=== PATIENT | female | born 1935 | race American Indian/Alaskan Native ===

== ENCOUNTER 2017-05-05 08:55 | Emergency (ER) | payer MEDICARE, OTHER ==
[2017-05-05 09:04] VITALS: BMI 29.0
[2017-05-05] MEDS ORDERED: Oxycodone/Acetaminophen 5/325 mg Tab PO STA (09:21)
--- NOTE | 2017-05-05 09:27 | ED PDOC ---
Arrival/HPI - General Chief Complaint: Lower Extremity Problem/Injury Time Seen by Provider: 05/05/17 09:10 Historian: Patient, Family - History of Present Illness Narrative History of Present Illness (Text): 05/05/17 09:24 82 y/o female, hearing impaired and communicated by the daughter with hand translation (pt. preferred), pmh including hyperlipidemia/htn (on beta block, HR 45 but asymptomatic, stated this is her baseline), nkda, c/o bilateral sole pain x 5 days with no fall or trauma. Aching and sharp pain, more on the rt. heel sole region radiating to the calf region, no fever or chills, no coughing or night sweat, no rash, no chest pain or shortness of breath, no lower back pain, no palpitation, limited relief with the tylenol and motrin at home, no other medical or psychological complaints. Past Medical History - Provider Review Nursing Documentation Reviewed: Yes - Reproductive Menopause: Yes - Cardiac Hx Cardiac Disorders: Yes Hx Hypertension: Yes - Pulmonary Hx Respiratory Disorders: No - Neurological Hx Neurological Disorder: No - HEENT Hx HEENT Disorder: Yes Other/Comment: PT DEAF AND MUTE - Renal Hx Renal Disorder: No - Endocrine/Metabolic Hx Endocrine Disorders: No - Hematological/Oncological Hx Blood Disorders: No - Integumentary Hx Dermatological Disorder: No - Musculoskeletal/Rheumatological Hx Musculoskeletal Disorders: Yes Hx Gout: Yes - Gastrointestinal Hx Gastrointestinal Disorders: No - Genitourinary/Gynecological Hx Genitourinary Disorders: No - Psychiatric Hx Psychophysiologic Disorder: No Hx Substance Use: No - Surgical History Hx Appendectomy: Yes Other/Comment: HYSTERECTOMY, HEMORROIDECTOMY - Anesthesia Hx Anesthesia: Yes Hx Anesthesia Reactions: No Family/Social History - Physician Review Nursing Documentation Reviewed: Yes Family/Social History: Unknown Family HX Smoking Status: Never Smoked Hx Alcohol Use: No Hx Substance Use: No Allergies/Home Meds Allergies/Adverse Reactions: Allergies No Known Allergies Allergy (Verified 11/05/14 09:12) Home Medications: Home Meds Medication Instructions Recorded Confirmed Amlodipine Besylate 10 mg PO DAILY 11/05/14 05/05/17 Lisinopril/Hydrochlorothiazide 1 tab PO DAILY 11/05/14 05/05/17 [Lisinopril-Hydrochlorothiazide 25 mg-20 mg] Metoprolol Succinate 100 mg PO DAILY 11/05/14 05/05/17 Simvastatin 40 mg PO DAILY 11/05/14 05/05/17 Review of Systems - Review of Systems Constitutional: absent: Fatigue, Fevers Eyes: absent: Vision Changes ENT: absent: Hearing Changes Respiratory: absent: SOB, Cough Cardiovascular: absent: Chest Pain Gastrointestinal: absent: Abdominal Pain, Nausea, Vomiting Musculoskeletal: absent: Arthralgias, Back Pain Skin: absent: Rash, Pruritis Neurological: absent: Headache, Dizziness, Gait Changes Physical Exam Vital Signs Temp Pulse Resp BP Pulse Ox 05/05/17 11:24 47 L 18 128/58 L 95 05/05/17 09:36 98.4 F 45 L 16 140/57 L 99 - Systems Exam Head: Present: Atraumatic, Normocephalic Pupils: Present: PERRL Conjunctiva: Present: Normal Mouth: Present: Moist Mucous Membranes Neck: Present: Normal Range of Motion Respiratory/Chest: Present: Clear to Auscultation, Good Air Exchange. No: Respiratory Distress, Accessory Muscle Use Cardiovascular: Present: Regular Rate and Rhythm, Normal S1, S2, Other (no pedal edema). No: Murmurs Abdomen: Present: Normal Bowel Sounds. No: Tenderness, Distention, Peritoneal Signs Back: Present: Normal Inspection. No: CVA Tenderness, Midline Tenderness, Paraspinal Tenderness, Pain with Leg Raise Upper Extremity: Present: Normal Inspection. No: Cyanosis, Edema Lower Extremity: Present: Normal Inspection, Neurovascularly Intact, Other ( Bilateral lower extremities: +ttp on the bilateral sole region and more on the rt. calcaneal region, negative bjorn and muhammad signs, no erythematous, FROM without limitation, sensation intact, motor 5/5, +DPPT pulses bilaterally, no ulcers. ). No: Edema, Erythema, Deformity, Temperature Abnormalties Neurological: Present: GCS=15, Speech Normal, Motor Func Grossly Intact, Memory Normal Skin: Present: Warm, Dry, Normal Color. No: Rashes Psychiatric: Present: Alert, Oriented x 3, Normal Insight, Normal Concentration Medical Decision Making ED Course and Treatment: 05/05/17 09:29 -percocet -bilateral lower venuous doppler -bilateral feet xrays -observe and reassess 05/05/17 11:09 -Bilateral lower extremities venous doppler: as per preliminary report, no acute DVT -Left foot xray: +calcaneal spurs, no fracture or dislocation. -Right foot xray: +calcaneal spurs, no fracture or dislocation. -Pain decreased, feels better, will discharge home. -I checked the [facility] report, no prescription of narcotics prescribed for the past 12 months. -Discharge home with cane, percocet, marlen wrap, follow up with your own pmd and acute coordinator within 2 days, return to the ER for any new or worsening signs or symptoms. - RAD Interpretation Radiology Orders: 05/05/17 09:21 FOOT LEFT 3 VIEWS ROUTINE [RAD] Stat FOOT RIGHT 3 VIEWS ROUTINE [RAD] Stat DUPLEX LOWER EXTRM VEIN BILAT [US] Stat Left foot xray: PROCEDURE: Left Foot Radiographs. HISTORY: sole pain x 5 days. COMPARISON: May 05, 2017. Right foot FINDINGS: BONES: Normal. No fracture. JOINTS: Normal. SOFT TISSUES: Soft tissue swelling plantar aspect OTHER FINDINGS: None. IMPRESSION: Soft tissue swelling without acute articular or osseous abnormality. Rt. foot xray: PROCEDURE: Right Foot Radiographs. Edilberto HISTORY: sole pain x 5 days. COMPARISON: None. FINDINGS: BONES: Normal. No fracture. JOINTS: Normal. SOFT TISSUES: Soft tissue swelling mid and distal foot OTHER FINDINGS: None. IMPRESSION: Soft tissue swelling without acute articular or osseous abnormality. Bilateral lower extremities venous doppler: as per preliminary report, no acute DVT Sample Maker: Radiologist - Medication Orders Current Medication Orders: Discontinued Medications Oxycodone/Acetaminophen (Percocet 5/325 Mg Tab) 1 tab PO STAT STA Stop: 05/05/17 09:22 Last Admin: 05/05/17 09:54 Dose: 1 tab MAR Pain Assessment Document 05/05/17 09:54 (Rec: 05/05/17 09:55 MR [id number]) Pain Reassessment Is this a pain reassessment? No Sleep Is patient sleeping during reassessment? No Presence of Pain Presence of Pain Yes Location Left, Right or Bilateral Right Pain Location Body Site Foot Description Description Sharp Intensity of Pain at present 10 Pain Behavior Crying Facial Grimacing Aggravating Factors Walking Alleviating Factors/Management Medication Techniques Alleviating Factors Medication - PA / SETTER INDUCTION HEATING EQUIPMENT / Resident Statement MD/DO has reviewed & agrees with the documentation as recorded. Disposition/Present on Arrival - Present on Arrival Any Indicators Present on Arrival: No History of DVT/PE: No History of Uncontrolled Diabetes: No Urinary Catheter: No History of Decub. Ulcer: No History Surgical Site Infection Following: None - Disposition Have Diagnosis and Disposition been Completed?: Yes Diagnosis: Plantar fasciitis, bilateral Disposition: HOME/ ROUTINE Disposition Time: 10:32 Patient Plan: Discharge Patient Problems: Current Active Problems Problem Status Onset Plantar fasciitis, bilateral Acute Condition: IMPROVED Additional Instructions: -Discharge home with cane, percocet, marlen wrap, follow up with your own pmd and acute coordinator within 2 days, return to the ER for any new or worsening signs or symptoms. Prescriptions: oxyCODONE/Acetaminophen [Percocet 5/325 mg Tab] 1 tab PO TID PRN #12 tab PRN Reason: Other Referrals: Laurent Patel DPM [Staff Provider] - Follow up with primary Forms: [employer] ([employer]), WORK NOTE
[2017-05-05 09:38] VITALS: TEMP 98.4
[2017-05-05 11:25] VITALS: BP 128/58; PULSE 47; RESP 18; O2SAT 95
--- NOTE | 2017-05-05 11:28 | RAD ---
PROCEDURE: Right Foot Radiographs. Edilberto HISTORY: sole pain x 5 days. COMPARISON: None. FINDINGS: BONES: Normal. No fracture. JOINTS: Normal. SOFT TISSUES: Soft tissue swelling mid and distal foot OTHER FINDINGS: None. IMPRESSION: Soft tissue swelling without acute articular or osseous abnormality.
--- NOTE | 2017-05-05 11:30 | RAD ---
PROCEDURE: Left Foot Radiographs. HISTORY: sole pain x 5 days. COMPARISON: May 05, 2017. Right foot FINDINGS: BONES: Normal. No fracture. JOINTS: Normal. SOFT TISSUES: Soft tissue swelling plantar aspect OTHER FINDINGS: None. IMPRESSION: Soft tissue swelling without acute articular or osseous abnormality.
--- NOTE | 2017-05-06 09:48 | US ---
HISTORY: Leg pain and swelling. Evaluate for DVT PHYSICIAN(S): Bigg Avila MD. TECHNIQUE: Duplex sonography and color-flow Doppler with graded compression were used to evaluate the deep venous systems of both lower extremities. FINDINGS: The visualized deep venous systems of both lower extremities are sonographically normal and compressible. Normal wave forms and augmentation are seen. There is no sonographic evidence for deep venous thrombosis in the visualized segments of both lower extremities. IMPRESSION: No sonographic evidence for deep venous thrombosis in the visualized segments of both lower extremities.
== END 2017-05-05 11:54 | disposition home or self-care (01) ==
LOC: ED 08:55
DX: M72.2 Plantar fascial fibromatosis (principal); I10 Essential (primary) hypertension

== ENCOUNTER 2017-09-30 19:14 | Emergency (ER) | payer MEDICARE, OTHER ==
[2017-09-30 19:16] VITALS: BMI 29.0
[2017-09-30 19:40] VITALS: TEMP 98.7
--- NOTE | 2017-09-30 20:42 | ED PDOC ---
Arrival/HPI - General Historian: Family - History of Present Illness Time/Duration: Prior to Arrival, > week Symptom Onset: Sudden Symptom Course: Worsening Quality: Aching, Pressure, Cramping Severity Level: 6 - General Chief Complaint: Lower Extremity Problem/Injury Time Seen by Provider: 09/30/17 19:38 - History of Present Illness Narrative History of Present Illness (Text): 09/30/17 20:42 82F pmhx significant for gout, HTN, HLD, deaf and mute using hearing aids, presents to [facility] ED w/ daughters at bedside providing history; bilateral point tenderness knee pain L > R that first started 2 weeks ago. Pain is described as achy, and ascends up to the groin while walking. Pt states b/l LE swelling has increased over the last few days. Denies, redness or fevers. Patient lives w/ daughter at home, ambulates w/ walker, stays mostly in the sitting position while at home. States moderate fatigue when walking, which is baseline for her. Denies trauma to the area. Denies Calf pain, chest pain, shortness of breath, changes in vision, nausea, vomiting, diarrhea. Of note: Patient recently had a URI and symptoms have resolved PMD: Dr. Berg PMH: stated above, internal hemorrhoids PSH: open hysterectomy, appendectomy ALL: NKDA SocialHx: previous smoker quit > 40 years ago, denies eoth, recreational drug use (Robby Finch) Past Medical History - Provider Review Nursing Documentation Reviewed: Yes - Travel History Have you recently traveled outside [place] w/in the past 3 mons?: No - Cardiac Hx Cardiac Disorders: Yes Hx Hypertension: Yes - Pulmonary Hx Respiratory Disorders: No - Neurological Hx Neurological Disorder: No - HEENT Hx HEENT Disorder: Yes Other/Comment: PT DEAF AND MUTE - Renal Hx Renal Disorder: No - Endocrine/Metabolic Hx Endocrine Disorders: No - Hematological/Oncological Hx Blood Disorders: No - Integumentary Hx Dermatological Disorder: No - Musculoskeletal/Rheumatological Hx Musculoskeletal Disorders: Yes Hx Gout: Yes - Gastrointestinal Hx Gastrointestinal Disorders: No - Genitourinary/Gynecological Hx Genitourinary Disorders: No - Psychiatric Hx Psychophysiologic Disorder: No Hx Substance Use: No - Surgical History Hx Appendectomy: Yes Other/Comment: HYSTERECTOMY, HEMORROIDECTOMY - Anesthesia Hx Anesthesia: Yes Family/Social History - Physician Review Nursing Documentation Reviewed: Yes Family/Social History: Other (non-contributory) Smoking Status: Never Smoked Hx Alcohol Use: No Hx Substance Use: No Allergies/Home Meds Allergies/Adverse Reactions: Allergies No Known Allergies Allergy (Verified 09/30/17 19:18) Home Medications: Home Meds Medication Instructions Recorded Confirmed Amlodipine Besylate 10 mg PO DAILY 11/05/14 09/30/17 Lisinopril/Hydrochlorothiazide 1 tab PO DAILY 11/05/14 09/30/17 [Lisinopril-Hydrochlorothiazide 25 mg-20 mg] Metoprolol Succinate 100 mg PO DAILY 11/05/14 09/30/17 Simvastatin 40 mg PO DAILY 11/05/14 09/30/17 Review of Systems - Review of Systems Constitutional: Normal Eyes: Normal ENT: Normal Respiratory: SOB (on excertion) Cardiovascular: absent: Chest Pain, Palpitations Gastrointestinal: Normal Genitourinary Female: Normal Musculoskeletal: Joint Swelling (bilateral) Endocrine: Normal Hemo/Lymphatic: Normal Psychiatric: Normal Physical Exam Temperature: Afebrile Blood Pressure: Hypertensive Pulse: Regular Respiratory Rate: Normal Appearance: Positive for: Well-Appearing, Non-Toxic, Comfortable Mental Status: Positive for: Alert and Oriented X 3 - Systems Exam Head: Present: Atraumatic, Normocephalic Extroacular Muscles: Present: EOMI. No: Gaze Palsy Conjunctiva: Present: Normal Ears: Present: Other (bilateral hearing aids) Mouth: Present: Moist Mucous Membranes Respiratory/Chest: Present: Clear to Auscultation, Good Air Exchange. No: Respiratory Distress, Accessory Muscle Use Cardiovascular: Present: Regular Rate and Rhythm, Normal S1, S2. No: Murmurs Abdomen: Present: Other (soft). No: Tenderness, Distention, Peritoneal Signs Upper Extremity: Present: Normal Inspection Lower Extremity: Present: NORMAL PULSES, Other (point tenderness on Left patella ). No: CALF TENDERNESS, Minoo's Sign Neurological: Present: GCS=15, Speech Normal Skin: Present: Warm, Dry. No: Rashes Psychiatric: Present: Alert, Oriented x 3 Vital Signs Temp Pulse Resp BP Pulse Ox 09/30/17 23:52 70 18 152/78 H 98 09/30/17 19:22 98.7 F 67 16 167/74 H 97 Medical Decision Making ED Course and Treatment: 09/30/17 23:51 pt with complaint of knee pain, left greater than right with mild swelling but wo erythema/fluctuance/crepitus. wbc normal, trop negative, bnp 500+, cxr mild vascular markings, b/l knees no acute. i had a long conversation with the patient who stated with daughters no sob/chest pain/cough/fevers, and notified them of mild fluid signs on cxr and recommended observation at hospital but refused and cautioned for complications/ but they will fu pmd tommorow. plan mobic, prednisone short course. (ranasinghe) (Ranasinghe,Rafat) 09/30/17 20:54 - CXR/EKG - CBC/CMP/Trops - B/l knee xray Labs and CXR was reviewed and discussed in details w/ the family. CXR shows Cardiomegaly and vascular congestion; basilar opacities edema and/or infiltrate/ atelectasis. This could be in part to patient living a primary sedentary life style. Had a full and detailed discussion that the knee pain and swelling is most likely due to acute osteoarthritic changes. will give predisone, first dose here, and give a 5 day course on discharge. (Robby Finch) - Lab Interpretations Lab Results: 09/30/17 20:30 09/30/17 20:30 Lab Results 09/30/17 20:30: Sodium 144, Potassium 3.5 L, Chloride 107, Carbon Dioxide 24, Anion Gap 16, BUN 20, Creatinine 1.3 H, Est GFR ( Amer) 48, Est GFR (Non- Af Amer) 39, Random Glucose 112 H, Calcium 10.1, Magnesium 2.2, Total Bilirubin 0.4, AST 32, ALT 44, Alkaline Phosphatase 82, Lactate Dehydrogenase 775 H, Total Creatine Kinase 164, Troponin I < 0.01, NT-Pro-B Natriuret Pep 584 H, Total Protein 8.0, Albumin 4.3, Globulin 3.8, Albumin/Globulin Ratio 1.1 09/30/17 20:30: PT 11.0, INR 0.97, APTT 28.4 09/30/17 20:30: WBC 7.9, RBC 3.95, Hgb 12.1, Hct 36.3, MCV 91.9, MCH 30.6, MCHC 33.3, RDW 15.5 H, Plt Count 235, MPV 10.7, Gran % 51.1, Lymph % (Auto) 36.9 H, [place] % (Auto) 9.5 H, Eos % (Auto) 2.4, Baso % (Auto) 0.1, Gran # 4.02, Lymph # ( Auto) 2.9, [place] # (Auto) 0.8 H, Eos # (Auto) 0.2, Baso # (Auto) 0.01 - RAD Interpretation Radiology Orders: 09/30/17 20:19 CHEST TWO VIEWS (PA/LAT) [RAD] Stat 09/30/17 20:25 KNEE WITH PATELLA LEFT 3 VIEW [RAD] Stat 09/30/17 20:35 KNEE W PATELLA BILAT 3 VIEW [RAD] Stat - Medication Orders Current Medication Orders: Discontinued Medications Prednisone (Prednisone Tab) 20 mg PO STAT STA Stop: 09/30/17 23:52 - PA / FOREIGN DIPLOMAT / Resident Statement / has reviewed & agrees with the documentation as recorded. MD/ has examined the patient and agrees with the treatment plan. Disposition/Present on Arrival - Present on Arrival Any Indicators Present on Arrival: No History of DVT/PE: No History of Uncontrolled Diabetes: No Urinary Catheter: No History of Decub. Ulcer: No History Surgical Site Infection Following: None - Disposition Have Diagnosis and Disposition been Completed?: Yes Disposition Time: 22:35 Patient Plan: Discharge - Disposition Diagnosis: Knee pain, left Disposition: HOME/ ROUTINE Patient Problems: Current Active Problems Problem Status Onset Knee pain, left Acute Condition: GOOD Discharge Instructions (ExitCare): Patellofemoral Pain (DC) Additional Instructions: ImeldaCandice gonzalez, thank you for letting us take care of you today. Your provider was Dr. Gunter and Dr. Finch. You were treated for Left Knee pain and swelling. The emergency medical care you received today was directed at your acute symptoms. If you were prescribed any medication, please fill it and take as directed. It may take several days for your symptoms to resolve. Return to the Emergency Department if your symptoms worsen, do not improve, or if you have any other problems. Please contact your doctor or call one of the physicians/clinics you have been referred to that are listed on the Patient Visit Information form that is included in your discharge packet. Please consider following up with Orthopaedics for further work-up of the knee. Bring any paperwork you were given at discharge with you along with any medications you are taking to your follow up visit. Our treatment cannot replace ongoing medical care by a primary care provider (PCP) outside of the emergency department. Thank you for allowing the [facility] team to be part of your care today. Current Chest X ray shows: Cardiomegaly and vascular congestion; basilar opacities edema and/or infiltrate/atelectasis L. Knee x-ray shows osteoarthritic changes. Recommend follow up with Primary care doctor, and an Orthopaedic physician. If you had an X-Ray or CT scan: A Radiologist will review the ED reading if any change in treatment is needed we will contact you. Prescriptions: Meloxicam 7.5 mg PO DAILY 3 Days tablet Prednisone [Deltasone] 20 mg PO DAILY 5 Days #5 tablet Referrals: Howard Berg MD [Primary Care Provider] - Follow up with primary Forms: [employer] ([place])
[2017-09-30 20:57] LABS: BASO # 0.01 K/mm3 (0.0-2.0); BASO % 0.1 % (0.0-3.0); EOS # 0.2 (0.0-0.7); EOS % 2.4 % (1.5-5.0); GRAN # 4.02 (1.4-6.5); GRAN % 51.1 % (50.0-68.0); HEMOGLOBIN 12.1 g/dL (12.0-16.0); LYMPH # 2.9 (1.2-3.4); LYMPH % 36.9 % (22.0-35.0); MEAN CELL VOLUME 91.9 fl (80.0-105.0); MEAN CORPUSCULAR HEMOGLOBIN 30.6 pg (25.0-35.0); MEAN CORPUSCULAR HGB CONC 33.3 g/dl (31.0-37.0); MEAN PLATELET VOLUME 10.7 fl (7.0-11.0); MONO # 0.8 (0.1-0.6); MONO % 9.5 % (1.0-6.0); RBC 3.95 10^6/uL (3.5-6.1); RED CELL DISTRIBUTION WIDTH 15.5 % (11.5-14.5); WHITE BLOOD COUNT 7.9 10^3/ul (4.5-11.0)
[2017-09-30 21:11] LABS: ALB/GLOB RATIO 1.1 (1.1-1.8); ALBUMIN 4.3 g/dL (3.0-4.8); CALCIUM 10.1 mg/dL (8.4-10.5); GFR AFRICAN-AMERICAN 48; GFR NON-AFRICAN AMERICAN 39
[2017-09-30 21:14] LABS: ALT/SGPT 44 U/L (7-56); AST/SGOT 32 U/L (14-36); BLOOD UREA NITROGEN 20 mg/dL (7-21); MAGNESIUM 2.2 mg/dL (1.7-2.2)
[2017-09-30 21:22] LABS: B-TYPE NATRIURETIC PEPTIDE 584 pg/mL (0-450); TROPONIN I < 0.01 ng/mL
[2017-09-30 21:25] LABS: INR 0.97 (0.93-1.08); PARTIAL THROMBOPLASTIN TIME 28.4 Seconds (25.1-36.5)
--- NOTE | 2017-09-30 23:23 | RAD ---
EXAM: XR Chest, 2 Views EXAM DATE/TIME: 09/30/2017 8:19 PM CLINICAL HISTORY: 82 years old, female; Signs and symptoms; Other: Le swelling TECHNIQUE: Frontal and lateral views of the chest. COMPARISON: There are no prior studies for comparison. FINDINGS: Heart: The heart is enlarged. Mediastinum:There are calcifications in the aortic knob. Aorta is uncoiled There is bilateral hilar prominence Vascularity:There is pulmonary vascular congestion. Lungs and pleural spaces: There is mild prominence of interstitial markings. There is more focal opacity at both lung bases. There are no definite effusions. Bony structures: Bony structures are osteopenic with degenerative change. IMPRESSION: Cardiomegaly and vascular congestion; basilar opacities edema and/or infiltrate/atelectasis
[2017-09-30 23:52] VITALS: BP 152/78; PULSE 70; RESP 18; O2SAT 98
--- NOTE | 2017-10-01 09:09 | RAD ---
PROCEDURE: Bilateral Knee Radiographs. HISTORY: knee pain COMPARISON: None. FINDINGS: BONES: Right Knee: Normal. No fracture. Left Knee: Normal. No fracture. JOINTS: Right Knee: Moderate to severe degenerative changes are seen in the patellofemoral joints bilaterally. Left knee: As above SOFT TISSUES: Right Knee: Normal. Left Knee: Normal. JOINT EFFUSION: Right Knee: None. Left Knee: None. OTHER FINDINGS: None. 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
--- NOTE | 2017-10-01 21:15 | CARD ---
APPROVED REPORT EKG Measurement Heart [id number] <Conclusion> Sinus rhythm with 1st degree AV block Right bundle branch block T wave abnormality, consider inferior ischemia Abnormal ECG
== END 2017-10-01 00:01 | disposition home or self-care (01) ==
LOC: ED 19:14
DX: M25.562 Pain in left knee (principal); I10 Essential (primary) hypertension; E78.5 Hyperlipidemia, unspecified